=== PATIENT | female | born 1970 | race African-American/Black ===

== ENCOUNTER 2018-09-01 13:44 | Emergency (ER) | payer OTHER ==
[~2018-09-01] VITALS: Ht 157.5 cm; Wt 71.2 kg
--- NOTE | ~2018-09-01 | EKG ---
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
[2018-09-01 15:06] LABS: AMP/METHAMP Negative (Negative); BARBITURATES Negative (Negative); BENZODIAZEPINES Negative (Negative); COCAINE Negative (Negative); METHADONE Negative (Negative); OPIATES Negative (Negative); PCP Negative (Negative)
[2018-09-01 15:25] VITALS: BP 153/92
[2018-09-01] MEDS ORDERED: SYMBICORT160 MCG/4. INH (15:30)
[2018-09-01] MEDS ORDERED: AMLODIPINE BESY10 MG PO (15:30)
[2018-09-01] MEDS ORDERED: VENTOLIN HFA 1818 GM INH (15:31)
[2018-09-01 15:32] LABS: HEMATOCRIT 44.7 % (37.0-47.0); HEMOGLOBIN 15.3 gm/dL (12.0-15.0)
[2018-09-01 15:34] LABS: ABSOLUTE NEUTROPHILS 3.6 thou/uL (1.4-8.2); BASOPHILS 0.8 % (0.0-2.0); EOSINOPHILS 3.6 % (0.0-3.0); LYMPHOCYTES 34.2 % (24.0-44.0); MCH 30.6 pg (26.0-34.0); MCHC 34.2 g/dL (28.0-37.0); MCV 89.4 fL (80.0-100.0); MONOCYTES 9.4 % (1.0-8.0); PLATELET COUNT 271 thou/uL (150-400); WBC 6.8 thou/uL (4.0-11.0)
[2018-09-01 15:43] LABS: ANION GAP 8 mmol/L (7-16); BUN 7 mg/dL (7-18); CALCIUM 9.8 mg/dL (8.5-10.1); CHLORIDE 104 mmol/L (98-107); CO2 29 mmol/L (21-32); CREATININE 0.6 mg/dL (0.6-1.0); GLUCOSE 106 mg/dL (74-106); POTASSIUM 3.6 mmol/L (3.5-5.1); SODIUM 141 mmol/L (136-145)
[2018-09-01 15:46] LABS: APTT 29.5 Seconds (24.5-32.8); INR 1.1
[2018-09-01 15:52] LABS: ALBUMIN 3.3 g/dL (3.4-5.0); SGOT 20 U/L (15-37); SGPT 28 U/L (30-65); TOTAL BILIRUBIN 0.3 mg/dL (<0.1-1.0); TOTAL PROTEIN 7.2 g/dL (6.4-8.2); TROPONIN-I <0.06 ng/mL (<0.06)
[2018-09-01] MEDS ORDERED: BUTALB-APAP-CA1 EACH PO (16:12)
[2018-09-01] MEDS ORDERED: CLONIDINE0.1 PO (16:12)
[2018-09-01] MEDS ORDERED: NORFLEX100 MG PO (16:12)
== END 2018-09-01 17:36 | disposition home or self-care (01) ==
LOC: ER 13:44
PROVIDERS: Emergency Medicine
DX: I10 Essential (primary) hypertension (principal); G44.209 Tension-type headache, unspecified, not intractable; J45.909 Unspecified asthma, uncomplicated; F17.210 Nicotine dependence, cigarettes, uncomplicated; Z91.013 Allergy to seafood